=== PATIENT | male | born 1995 | race Hispanic/Latino ===

== ENCOUNTER → 2025-04-15 09:09 | Outpatient (CLI) | payer OTHER, SELFPAY ==
--- NOTE | 2025-04-15 09:16 | DI.RAD.S_ITS ---
PROCEDURE: XR CHEST 2V INDICATIONS: post chest tube removal TECHNIQUE: 2 views of the chest were acquired. COMPARISON: None. FINDINGS: Surgical changes and devices: None. Lungs and pleura: Lungs are clear. No pleural effusions or pneumothorax. Mediastinum: Mediastinal contours are normal. Heart size is normal. Bones and chest wall: No suspicious bony abnormalities. Soft tissues appear unremarkable. IMPRESSION: No acute cardiopulmonary abnormality is seen. Dictated by: Hedy Smyth MD, PhD on 04/15/2025 at 9:36 Approved by: Hedy Smyth MD, PhD on 04/15/2025 at 9:37
== END ==
LOC: RAD 09:14
PROVIDERS: Referring Provider Surgery; Visit Provider Surgery
DX: J93.83 Other pneumothorax (principal)
CPT/HCPCS: 71046